=== PATIENT | male | born 1975 | race Caucasian/White ===

== ENCOUNTER 2021-01-26 14:57 | Emergency (ER) | payer OTHER, SELFPAY ==
[2021-01-26 15:10] VITALS: BP 162/90; PULSE 94; RESP 16; TEMP 36.6; O2SAT 99
== END 2021-01-26 15:27 | disposition left against medical advice (07) ==
PROVIDERS: Emergency Provider Internal Medicine Hematology & Oncology; PCP Nurse Practitioner Family
DX: Z53.21 Procedure and treatment not carried out due to patient leaving prior to being seen by health care provider (principal)
CPT/HCPCS: 99199